=== PATIENT | male | born 1930 | race Caucasian/White ===

== ENCOUNTER 2019-12-10 09:41 | Emergency (ER) | payer MEDICARE, OTHER ==
[2019-12-10] MEDS ORDERED: Sodium Chloride 0.9% 10 ML Syringe FLUSH PRN (09:53)
[2019-12-10] MEDS ORDERED: Sodium Chloride 0.9% 1,000 ML IV SCH (10:00)
--- NOTE | 2019-12-10 10:07 | EDM.PDOC ---
ED HPI GENERAL MEDICAL PROBLEM - General Chief Complaint: General Stated Complaint: DIZZY Time Seen by Provider: 12/10/19 09:46 Source of Information: Reports: Patient, Family History Limitations: Reports: No Limitations - History of Present Illness INITIAL COMMENTS - FREE TEXT/NARRATIVE: The patient presents with his daughter for upper abdominal pain, nausea, vomiting, jaundice and lightheadedness. He started turning yellow November 29. He also had some upper abdominal pain and nausea and vomiting. He does drink daily usually some wine or beer daily. He has slowed down the past few days to see if that helps. He feels lightheaded. He has no chest pain or shortness of breath. He has no fever, chills, cough, congestion, runny nose, dysuria or hematuria. He does have some loose stools lately. He says he still has a gallbladder. He has no heart disease history. Onset: Gradual Duration: Day(s): Location: Reports: Abdomen Quality: Reports: Ache Severity: Moderate Improves with: Reports: None Worsens with: Reports: None Associated Symptoms: Reports: Nausea/Vomiting. Denies: Chest Pain, Cough, Fever /Chills, Headaches, Shortness of Breath - Related Data Allergies Allergy/AdvReac Type Severity Reaction Status Date / Time No Known Allergies Allergy Verified 12/10/19 09:59 Home Meds: Home Meds Cholesterol Medication 12/10/19 [History] ED ROS GENERAL - Review of Systems Review Of Systems: See Below Constitutional: Reports: No Symptoms HEENT: Reports: No Symptoms Respiratory: Reports: No Symptoms Cardiovascular: Reports: No Symptoms Endocrine: Reports: No Symptoms GI/Abdominal: Reports: Abdominal Pain, Diarrhea, Nausea, Vomiting : Reports: No Symptoms Musculoskeletal: Reports: No Symptoms ED EXAM, GENERAL - Physical Exam Exam: See Below Exam Limited By: No Limitations General Appearance: Alert, No Apparent Distress Eye Exam: Bilateral Eye: Other (Scleral ictirus) Ears: Normal External Exam Nose: Normal Inspection Head: Atraumatic, Normocephalic Neck: Normal Inspection Respiratory/Chest: No Respiratory Distress, Lungs Clear, Normal Breath Sounds Cardiovascular: Regular Rate, Rhythm, No Edema, No Murmur GI/Abdominal: Soft, No Organomegaly, No Mass, Tender (Mild tenderness to the upper abdomen) EKG INTERPRETATION EKG Date: 12/10/19 Time: 09:59 Rhythm: NSR Rate (Beats/Min): 63 [place]: Normal P-Wave: Present QRS: Wide ST-T: Normal QT: Normal Course - Vital Signs Last Recorded V/S: Last Vital Signs Temp 97.6 F 12/10/19 09:51 Pulse 67 12/10/19 09:51 Resp 18 12/10/19 09:51 BP 103/71 12/10/19 09:51 Pulse Ox 99 12/10/19 09:51 - Orders/Labs/Meds Orders: Active Orders 24 hr Category Date Time Status Cardiac Monitoring [RC] . DIRECTED Care 12/10/19 09:53 Active EKG Documentation Completion [RC] STAT Care 12/10/19 09:54 Active Peripheral IV Care [RC] . DIRECTED Care 12/10/19 09:54 Active UA W/MICROSCOPIC [URIN] Stat Lab 12/10/19 12:10 Received Sodium Chloride 0.9% [Normal Saline] 1,000 ml Med 12/10/19 10:00 Active IV ASDIRECTED Sodium Chloride 0.9% [Saline Flush] Med 12/10/19 09:53 Active 10 ml FLUSH ASDIRECTED PRN Peripheral IV Insertion Adult [OM.PC] Stat Oth 12/10/19 09:53 Ordered Medication Orders Sodium Chloride (Normal Saline) 1,000 mls @ 125 mls/hr IV ASDIRECTED UNA Last Admin: 12/10/19 10:54 Dose: 125 mls/hr Sodium Chloride (Saline Flush) 10 ml FLUSH ASDIRECTED PRN PRN Reason: Keep Vein Open Last Admin: 12/10/19 10:58 Dose: 10 ml Labs: Laboratory Tests 12/10/19 12/10/19 12/10/19 Range/Units 10:00 10:00 10:00 WBC 4.88 (4.23-9.07) K/mm3 RBC 3.49 L (4.63-6.08) M/mm3 Hgb 11.7 L (13.7-17.5) gm/dl Hct 34.0 L (40.1-51.0) % MCV 97.4 H (79.0-92.2) fl MCH 33.5 H (25.7-32.2) pg MCHC 34.4 (32.2-35.5) g/dl RDW Std Deviation 50.4 H (35.1-43.9) fL Plt Count 98 L (163-337) K/mm3 MPV 11.5 (9.4-12.3) fl Neut % (Auto) 69.8 H (34.0-67.9) % Lymph % (Auto) 16.6 L (21.8-53.1) % [place] % (Auto) 10.7 (5.3-12.2) % Eos % (Auto) 2.7 (0.8-7.0) Baso % (Auto) 0.2 (0.1-1.2) % Neut # (Auto) 3.41 (1.78-5.38) K/mm3 Lymph # (Auto) 0.81 L (1.32-3.57) K/mm3 [place] # (Auto) 0.52 (0.30-0.82) K/mm3 Eos # (Auto) 0.13 (0.04-0.54) K/mm3 Baso # (Auto) 0.01 (0.01-0.08) K/mm3 Manual Slide Review Abnormal smear Sodium 139 (136-145) mEq/L Potassium 3.6 (3.5-5.1) mEq/L Chloride 103 (98-107) mEq/L Carbon Dioxide 22 (21-32) mEq/L Anion Gap 17.6 H (5-15) BUN 17 (7-18) mg/dL Creatinine 1.5 H (0.7-1.3) mg/dL Est Cr Clr Drug Dosing 30.13 mL/min Estimated GFR (MDRD) 44 (>60) mL/min BUN/Creatinine Ratio 11.3 L (14-18) Glucose 164 H (83-115) mg/dL Calcium 9.7 (8.5-10.1) mg/dL Total Bilirubin 9.8 H (0.2-1.0) mg/dL GGT 2597 H (15-85) U/L AST 178 H (15-37) U/L ALT 229 H (16-63) U/L Alkaline Phosphatase 1344 H (46-116) U/L Troponin I < 0.017 (0.00-0.056) ng/mL Total Protein 7.4 (6.4-8.2) g/dl Albumin 3.1 L (3.4-5.0) g/dl Globulin 4.3 gm/dL Albumin/Globulin Ratio 0.7 L (1-2) Lipase 100 (73-393) U/L Ethyl Alcohol 0.00 (0.00) gm% Meds: Medications Generic Name Dose Route Start Last Admin Trade Name Allanq PRN Reason Stop Dose Admin Sodium Chloride 1,000 mls @ 125 mls/hr 12/10/19 10:00 12/10/19 10:54 Normal Saline IV 125 mls/hr ASDIRECTED UNA Administration Sodium Chloride 10 ml 12/10/19 09:53 12/10/19 10:58 Saline Flush FLUSH 10 ml ASDIRECTED PRN Administration Keep Vein Open - Re-Assessments/Exams Free Text/Narrative Re-Assessment/Exam: 12/10/19 10:08 I ordered an IV NS at 125mL/hr, EKG, labs, UA and an US of his gallbladder. 12/10/19 12:19 His WBC was normal. His Hgb was a little low at 11.7. His anion gap was elevated at 17.6. His creatinine is elevated at 1.5. His glucose is elevated at 164. His total bili was elevated at 9.8. His GGT was elevated at 2597. His AST is elevated at 178. His ALT is elevated at 228. His ALK Phos is elevated at 1349. His lipase is normal. His troponin is negative. His EKG shows a NSR with no acute changes. His US shows dilated gallbladder and dilated CBD. Non-shadowing gallstones or possibly sludge balls within the gallbladder near the gallbladder neck. No gallbladder wall thickening is seen. Pancreatic duct is mildly dilated. I called [facility] in [place] and talked with Dr Dickerson the hospitalist and he accepted the patient. Departure - Departure Time of Disposition: 12:30 Disposition: DC/Tfer to Acute Hospital 02 Condition: Fair Clinical Impression: Jaundice, Gall stones, Common bile duct obstruction - Discharge Information Referrals: Bg Hagen MD [Primary Care Provider] - Forms: ED Department Discharge Sepsis Event Note - Evaluation Sepsis Screening Result: No Definite Risk - Focused Exam Vital Signs: Vital Signs Temp Pulse Resp BP Pulse Ox 12/10/19 09:51 97.6 F 67 18 103/71 99 Date Exam was Performed: 12/10/19 Time Exam was Performed: 12:18 - My Orders Last 24 Hours: My Active Orders 12/10/19 09:53 Cardiac Monitoring [RC] . DIRECTED Sodium Chloride 0.9% [Saline Flush] 10 ml FLUSH ASDIRECTED PRN Peripheral IV Insertion Adult [OM.PC] Stat 12/10/19 09:54 EKG Documentation Completion [RC] STAT Peripheral IV Care [RC] . DIRECTED 12/10/19 10:00 Sodium Chloride 0.9% [Normal Saline] 1,000 ml IV ASDIRECTED 12/10/19 12:10 UA W/MICROSCOPIC [URIN] Stat - Assessment/Plan Last 24 Hours: My Active Orders 12/10/19 09:53 Cardiac Monitoring [RC] . DIRECTED Sodium Chloride 0.9% [Saline Flush] 10 ml FLUSH ASDIRECTED PRN Peripheral IV Insertion Adult [OM.PC] Stat 12/10/19 09:54 EKG Documentation Completion [RC] STAT Peripheral IV Care [RC] . DIRECTED 12/10/19 10:00 Sodium Chloride 0.9% [Normal Saline] 1,000 ml IV ASDIRECTED 12/10/19 12:10 UA W/MICROSCOPIC [URIN] Stat
--- NOTE | 2019-12-10 12:07 | US ---
Limited abdominal ultrasound: Multiple real-time images of the upper right abdomen were obtained. Comparison: Previous CT abdomen and pelvis study of 12/25/13. Liver shows no focal parenchymal abnormality. Main pancreatic duct is mildly dilated. Gallbladder is dilated with non-shadowing gallstones or possibly sludge balls near the gallbladder neck. No gallbladder wall thickening is seen. Common bile duct is dilated at 1.2 cm. Right kidney shows no hydronephrosis or mass. Right kidney length is 11.3 cm. Main portal vein shows normal hepatopedal flow. Impression: 1. Dilated gallbladder and dilated CBD. Non-shadowing gallstones or possibly sludge balls within the gallbladder near the gallbladder neck. 2. No gallbladder wall thickening is seen. 3. Pancreatic duct is mildly dilated. Note: MR cholangiogram study could be considered to further evaluate if patient has no contraindications. Diagnostic code #3 This report was dictated in [place] Standard Time
[2019-12-10] MEDS ORDERED: HYDROmorphone 0.5 MG/0.5 ML Syringe IVPUSH ONE (13:18)
== END 2019-12-10 13:30 ==
LOC: JD.ED 09:41
DX: K80.51 Calculus of bile duct without cholangitis or cholecystitis with obstruction (principal)
CPT/HCPCS: 36415; 76705; 80053; 80307; 81001; 82977; 83690; 84484; 85025; 93005; 96361; 96374; 99285; J1170; J7030; 93010; 99284